=== PATIENT | female | born 1960 | race Caucasian/White ===

== ENCOUNTER → 2021-06-23 | Outpatient (CLI) | payer BC ==
[2021-06-23 18:30] LABS: Basophils # (A) 0.07 X 10*3/uL (0.00-0.10); Basophils % (A) 1.1 %; Eosinophils # (A) 0.15 X 10*3/uL (0.04-0.35); Eosinophils % (A) 2.4 %; HCT 45.7 % (37.2-46.3); HGB 14.2 g/dL (12.0-15.0); Immature Grans, Automated 0.3 %; Lymphocytes # (A) 1.41 X 10*3/uL (0.90-5.00); Lymphocytes % (A) 22.7 %; MCH 30.4 pg (27.0-32.0); MCHC 31.1 g/dL (32.0-37.0); MCV 97.9 fL (80.0-97.0); Mean Platelet Volume 10.6 fL (9.5-12.2); Monocytes # (A) 0.49 X 10*3/uL (0.20-1.00); Monocytes % (A) 7.9 %; NRBC Per 100 WBC 0 /100 WBCS (0.0-0.0); Neutrophils # (A) 4.07 X 10*3/uL (1.80-7.70); Neutrophils % (A) 65.6 %; Platelet Count 285 X 10*3/uL (140-440); RBC 4.67 X 10*6/uL (4.10-5.20); RDW 14.6 % (11.5-14.5); WBC 6.21 X 10*3/uL (4.50-10.00)
[2021-06-23 18:37] LABS: African American GFR (CKD) 101.7 (60.0-200.0); Anion Gap 9.2 mmol/L (10.00-18.00); BUN/Creat Ratio 22.64 Ratio (12.00-20.00); Blood Urea Nitrogen 16.8 mg/dL (9.0-27.0); Calcium 9.7 mg/dL (8.7-10.3); Non-African American GFR(CKD) 87.8 (60.0-200.0); Potassium 4.8 mmol/L (3.5-5.5)
[2021-06-23 19:13] LABS: INR 0.91 (0.90-1.11); Prothrombin Time 10.3 sec (9.9-11.9)
== END | disposition home or self-care (01) ==
LOC: LABPAT 11:01
PROVIDERS: ATTEND Orthopaedic Surgery
DX: Z01.812 Encounter for preprocedural laboratory examination (principal); M47.816 Spondylosis without myelopathy or radiculopathy, lumbar region; Z22.322 Carrier or suspected carrier of Methicillin resistant Staphylococcus aureus
CPT/HCPCS: 80048; 85025; 85610; 87070

== ENCOUNTER 2021-07-01 09:58 | Inpatient (IN) | payer BC ==
--- NOTE | 2021-06-23 14:03 | P.HPOR ---
History of Present Illness H&P Date: 06/23/21 Chief Complaint: Low back pain, LE radiculopathy/pain, LE weakness Date of :[birth year] Age: 60 year Height: 5'10" Weight: 220 lbs BMI: 31.57 kg/m2 Occupation: [employer] officer VAS: 2 CHIEF COMPLAINT: Lumbar pain HISTORY: Xrays No new xrays taken in office Trauma or injury No Work-Related No Pain description sharp. Location diffuse Activity Modification yes , unable to stand or ambulate for extended periods of time. Hand Dominance right DOI: Chronic, no injury or trauma. DOS:None. TREATMENTS COMPLETED: 6 weeks of PT completed? Yes, with no improvements. Physician directed home exercise completed? Yes, with no improvements, exacerbated her lumbar pain. Medications List: Advil, Aleve with no discernable changes to her symptomology. Gabapentin and Wyatt also without relief. Alternative interventions Chiropractic?: No Brace: No Injections Yes (Right L4-L5, L5-S1 ROOSEVELT) How many? 2 Did they help? yes , good relief for 4-5 days each that then waned. RFA: yes, relief of pain in back for short time. SUBJECTIVE: Today the patient presents to the office for a pre-op review of the planned L4- S1 decompression and fusion. Since the time of the last appointment the patient reports that her symptoms have continued to persist. She reports mild improvements to her pain with the RFA but still is having significant issues c ompleting daily tasks. Overall she feels that she has failed to improve with conservative modalities. Otherwise she expresses an understanding of the surgery and wishes to proceed with the planned operation. She continues to deny any bladder or bowel retention/incontinence, no perineal numbness/tingling, and ambulates independently. HPI: Ms. Corrales last presented to the office on 05/01/2021 for a recheck of her lumbar spine following her last appointment via televisit. Since the time of the last appointment the patient reports that her symptoms have not changed and co ntinued to give her significant issues. Overall she reports that she has failed to improve with all conservative treatments trialed and is ready to further discuss operative intervention. Patient reports significant disfunction and an inability to complete most of her daily activities. Otherwise she also denies having trialed any new treatment modalities since the time of the last appointment. Additionally she continues to deny any bladder or bowel issues, no perineal numbness/tingling, and is ambulating without the use of any aids. Ms. Corrales was last seen on 05/05/21 regarding her MRI that could not be read at the time of her office visit. Regarding her symptoms she denies any changes since the time of the last appointment. Patient continues to complain on inability to complete many of her daily functions due to her symptoms, and most acutely her bilateral lower extremity weakness and radiculopathy. Her primary concern is her lower extremity weakness which is causing her disability. Patient denies having improved with any treatment modalities trialed thus far, overall noting that she is unable to function with most of her daily activities at this time. She continues to deny any bladder or bowel issues, no perineal numbness/tingling, and ambulates without the use of any aides. Ms. Corrales was previously seen on 04/30/2021 regarding an evaluation of her lumbar spine. Patient notes that she has had lumbar pain for many years that have progressively worsened over time. Patient denies any injury or trauma to indicate an exact onset of her symptoms. She continues to have low back pain as well as b/l LE numbness/tingling. She states some weakness in her legs as well and "giving out feeling". She denies any bowel or bladder issues. No perineal numbness tingling at this time. She states she has not had any recent treatment for her spine but in the past has done PT as well as HEP and medications w/o help. The patients' past social, medical, family, surgical history, as well as review of systems, have been reviewed. Please refer to the Neurosurgery History and Physical form that has been scanned in to our electronic medical record system. 14 points review of systems completed and as stated in HPI, all other systems reviewed are negative. Review of Systems 14 points review of systems completed and as stated in HPI, all other systems reviewed are negative. Physical Examination Osteopathic Statement: *. No significant issues noted on an osteopathic structural exam other than those noted in the History and Physical/Consult. PHYSICAL EXAMINATION: General: Awake, alert, appropriate for age, in no acute distress. HEENT: No unusual neck masses around region of lateral neck triangle, thyroid, supraclavicular groove Heart: Regular rate and rhythm, normal S1, S2 and no murmur/gallop. Lungs: Clear to auscultation bilaterally with no use of accessory muscles. Extremities: Skin warm and dry without acute lesions, coloration, temperature, skin intact, no tenderness or erythema Integument: Hairy patches: Absent Dorsal skin dimples: Absent Cafe au lait spots: Absent Surgical incisions: No Palpation: Please see Pain drawing on Intake sheet for further detail. Midline spinal tenderness: Yes E6 Paralumbar tenderness: Yes E6 Parathoracic tenderness: No E6 Buttocks tenderness: No E6 Special findings: yes Palpable stepoff at L5-L4 Tenderness over the right SI joint POSTURAL and MUSCULO-SKELETAL EVALUATION: Coronal Balance: NEUTRAL Recumbent testing: Patient is able to lay flat on back Sagittal Balance: NEUTRAL Shoulder Profile: LEVEL Pelvic Girdle: LEVEL Neck ROM: UNRESTRICTED Lumbar ROM: RESTRICTED Shoulder ROM: Symmetrical Hip ROM: Symmetrical Knee ROM: Symmetrical Hands: Normal appearance, symmetrical Feet: Normal appearance, Symmetrical VASCULAR STATUS : LEFT RIGHT Wrist Pulses INTACT INTACT Pedal Pulses (Dors. pedis & post.tibialis) INTACT INTACT Color NORMAL NORMAL Edema Absent Absent NEUROLOGIC EXAMINATION: Mental Status:Awake and alert, fully oriented, with normal attention, concentration and memory, and fluent, appropriate speech. Cranial Nerves: I: Olfactory not tested. II: Visual acuity normal, no visual field deficit noted with confrontation. III,IV: Normal pupillary reflexes & intact extraocular movements without nystagmus. V,: Intact symmetrical facial sensation. VII: Intact symmetrical facial motor movement VIII: Hearing intact. IX,X: Intact gag, swallow, & normal voice. XI: Sternocleidomastoid, trapezius function intact. XII: Tongue midline with normal movements. L'hermitte's Sign: Negative / absent Spurling'Sign: Absent bilaterally. Cubital percussion test: Absent bilaterally. Johnson-Tinel sign - Carpal region: Absent bilaterally. Straight Leg Raising: Absent bilaterally. Crossed straight leg raise: negative O8 MOTOR EXAM (0-5/5, N/T) STRENGTH RIGHT LEFT Shoulder Abd (not part of the AMY score) 5 5 Elbow Flexors 5 5 Elbow Extensor 5 5 Wrist Dorsiflexors 5 5 Finger Abductor 5 5 Sports Bookmaker 5 5 Hip Flexor (Not part of AMY Motor score) 5 5 Knee Flexor 5 5 Knee Extensor 5 5 Ankle dorsiflexor 4- 4- Ankle plantarflexion 3 3 Extensor hallucis 5 5 REFLEXES(0-4/2, NT) RIGHT LEFT Upper Extremities 2 2 Lower Extremities 2 2 Pathological Reflexes RIGHT LEFT Johnson's Absent Absent Clonus Absent Absent Babinski Absent Absent # Indicates mechanical impairment Muscle appearance: Symmetrical, without signs of atrophy or dystrophy. Sensory system (0-4, N/T) Test type RU CARLEEN RL LL Joint-Position 2 2 2 2 Vibration 2 2 2 2 Pain & LT sense 2 2 2 2 Dermatomal Deficit: None None L5-S1 None Gait and Functional Evaluation: Ambulatory aids: Independent Romberg's test: Intact bilaterally Toe heel walk / heel-toe walk intact while maintaining satisfactory balance? No Squatting/straightening w/o assistance to a min of 60 degree knee flexion? No Single leg stance: Unstable on both sides, right worse than left Trendelenburg sign negative bilaterally Hand and finger dexterity intact bilaterally? yes Disdiadochokinesis examination negative bilaterally? yes Results RADIOGRAPHIC STUDIES: XRay taken on 04/30/21 oflumbar Spine and pelvis: L3-S1 spondylosis with L3-4 spondylolisthesis Grade I with minor translation on f/e films. There is disc dessication as well as facet arthropathy through this area. No fracture or lesions noted. Flattened LL noted with PI:LL mismatch. AP pelvis shows post surgical changes L CHUCKIE in place, no complicating processes, no new fractures. Olt GT fracture Lt. MRI from 11/18/2020 of the lumbar spine demonstrates: Spondylosis is noted from L3-S1 with transitional segment. There is L3-4 and L4-5 spondylolisthesis grade I noted and L3-5. There are no fractures or lesions noted. There is severe stenosis L4-5 with moderate central stenosis L3- 4 and severe L4-5. There is facet arthropathy with hypertrophy and overgrowth contributing to the stenosis, there is ligamental hypertrophy contributing as well. There are boggy facets noted as well. Assessment and Plan Assessment: It was my pleasure to have seen and examined Jamila. I reviewed the patient's clinical syndrome, physical findings, and imaging studies during the appointment today. It is my impression that the patient has a diagnosis of. 1. L3-S1 spondylosis 2.L3-S1 spondylolisthesis GI 3. LE weakness 4. b/l LE radiculopathy 5. 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 Neurogenic claudication I outlined the natural course history without intervention and various interventional options. Plan: 1.At this time we did discuss her imaging, physical examination, and continued failure to improve with all conservative treatments trialed. Based on this I discussed treatment options with the patient, including operative and non- operative options, and they have elected to proceed with the following surgical procedure: L4-S1 decompression and fusion The indications, risks, benefits, and alternatives to surgery were discussed with the patient and family at length. Specifically (but not limited to) the ri sks of infection, stiffness, recurrence of symptoms, need for revision surgery, local numbness, neurovascular injury, and blood clots were discussed. The patient's questions were answered. The decision to proceed was made. Consent will be obtained for the procedure. 2. Ordered a CT scan without contrast of the lumbar spine for pre-op planning. 3. Given a script for an LSO brace to aid with post-op recovery. Spine Surgery Risk Review Jamila Corrales is presenting for evaluation of lumbar pain. It was my pleasure to have seen and examined Jamila Corrales. In our visit today we have had a chance to go over subjective complaints, physical examination findings and treatments including the natural course history without intervention and various interventional options. The patients imaging demonstrates Xrays: L3-S1 spondylosis with L3-4 spondylolisthesis Grade I with minor translation on f/e films. There is disc dessication as well as facet arthropathy through this area. No fracture or lesions noted. Flattened LL noted with PI:LL mismatch.AP pelvis shows post surgical changes L CHUCKIE in place, no complicating processes, no new fractures. Olt GT fracture Lt.MRI: Spondylosis is noted from L3-S1 with transitional segment. There is L3-4 and L4-5 spondylolisthesis grade I noted and L3-5. There are no fractures or lesions noted. There is severe stenosis L4-5 with moderate central stenosis L3- 4 and severe L4-5. There is facet arthropathy with hypertrophy and overgrowth contributing to the stenosis, there is ligamental hypertrophy contributing as well. There are boggy facets noted as well.On physical exam, Jamila Corrales demonstrates severely restricted lumbar ROM with bilateral lower extremity radiculopathy and weakness. Specifically regarding plantarflexion she has severe weakness which is effecting gait. She does have a right lower extremity L5-S1 dermatomal deficit as well. I have explained to the patient that as their condition progresses it will cause further neurological deficits and eventual paralysis. Based on the patients imaging, physical exam, and the rapid progression and disabling nature of their symptoms, at this time I recommend surgery in the form or a: L4-S1 decompression and fusion. I discussed the risk and benefits of this procedure at length with Jamila Corrales. The patient agreed to considered pursuing the procedure abovementioned. Prior to surgery, she should follow up with her PCP (Cardio, ID, IM etc) for clearance. Questions were invited and answered, and the patient wishes to proceed as outlined below. Currently, I am recommendin.L4-S1 decompression and fusion 2.Follow up with PCP for surgical clearance 3.Review of surgical risks and benefits as well as an educational packet on the proposed surgical procedure. Risks: All surgical procedures come with inherent risks, including those related to positioning, anesthesia, intraoperative findings, and postoperative complications. It is important to understand that surgery does not come with any guarantee of a successful outcome as complications and adverse events are always possible. The patient was given a handout in office today discussing the surgical procedure and risks associated with the intervention, both of which were discussed with the patient. These risks include but are not limited to the following: * Experiencing same, different or even worse symptoms in back, neck, arms, or legs compared to before surgery. Requiring further surgery or other forms of treatment presently or at some time in the future at same or other levels of the intended spine surgery. On an extreme but fortunately relatively rare basis severe complication such as blindness, stroke, heart attack, temporary and/or permanent nerve injury, paralysis, coma, or may occur, sometimes without known explanation. Surgical complications may include but are not limited to risk of in fection, fluid accumulation in the surgical dissection site, including a seroma or hematoma, that requires additional surgery, wound drainage, bleeding, new numbness or weakness, vision changes/loss, spinal fluid leakage, non-healing and/or infected incision, headaches, difficulty or inability to swallow, hoarseness, hemopneumothorax, pneumothorax, impotence, retrograde ejaculation, vaginal dryness; injury to nerves, spinal cord, blood vessels, lymphatics or other vital organs (i.e., bowel injury, injury to the great vessels); heterotopic bone formation; complications related to the hardware such as screws, rods, cages including misplaced hardware, device failure, instrumentation at the wrong spine level, hardware fracture/breakage, or hardware loosening; vertebral failure of the spinal column above or below the newly placed hardware; retained surgical instrumentations or devices and the need for further surgery. * Medical risks of the planned spine surgery include but are not limited to generalized Infections to the whole body or local areas outside of the surgical site (sepsis), heart attack, bleeding, anaphylaxis, meningitis, seizure, epilepsy, hearing loss, burn juarez, laceration of the head or other areas of the body, bruising, hypersensitivity of the skin, bladder over distension; allergic reaction; shoulder injury related to positioning; fat, blood and air clots to other areas of the body like heart, lungs, brain; failure of internal organs such as lungs, kidneys, liver and excessive bleeding. If blood transfusions are necessary, note that transfusions may ca use intolerance reactions such as anaphylaxis or other complex reactions. Despite best efforts, the results of spine surgery might not heal in terms of bone, soft tissues such as skin, fascia, ligaments, and joints. Additionally, in order to achieve best possible results, spine surgery may be carried out beyond the initially planned levels and involve decompression, fusion including insertion of hardware at levels other than the original intended area of surgical interest change some portions of the procedure in order to ensure the best possible outcomes. With spine surgery and spinal fusion, there are different off label uses of instrumentation (devices, implants and hardware) as well as biological substances (bone morphogenic proteins, demineralized bone matrix) as well as using extra bone from allograft sources (i.e. cadaver bone) or autograft (iliac crest bone, ribs, or the spine itself). The patient has been given information about these practices and their inherent risks and benefits. [facility] is an educational center that serves as a training facility for neurosurgical and orthopedic spine residents and fellows. Residents are physicians who are completing their surgical intensive training following medical school. They assist in the operating room with direct supervision of the attending surgeons. Clyo are surgeons who have completed their training and eligible for board certification. They have opted for an elective year of more specialized training in their field. They assist in the operating room under the supervision of the attending surgeons. Physician assistants are medically trained surgical providers who function in the outpatient, inpatient, and operating room setting under the direct supervision of the attending surgeon. [facility] has multiple operating rooms with single and overlapping rooms running daily. They currently function under the required guidelines as produced by the [facility] Finance Committee with regards to the overlapping rooms and will continue to comply with changes to this policy as they occur. The requirements include and are complied with as follows: (1) the critical portions of the overlapping rooms will not occur at the same time, (2) the attending physician will be physically present during the critical portions of the procedure and immediately available during the entire case, and (3) a back-up attending is designated should the primary attending not be immediately available. The patient has had a chance to review all the listed information, has been given print outs detailing this information, and has had all his/her questions answered to their satisfaction. It was my pleasure to have seen and examined Jamila Corrales. In our visit today we have had a chance to go over my understanding of our patient's current condition, the natural course history without intervention and various interventional options. Questions were invited and answered, and the patient wishes to proceed as outlined above. I have seen and examined the patient for 25 minutes and we have spent more than 50% of the time in repeat and detailed counseling about the patient's condition, its natural course history with out and as much as can be predicted with surgery and re-review of various surgical treatment options. In conclusion, Jamila Corrales requested we proceed with the above suggested surgery and are willing to accept risks and limitations of the suggested surgery as nature of the disease process and our best attempts at treatment for the c ondition. Thank you again for allowing us to be part of your patient's care. Please don't hesitate to contact me if you have any further questions. Signed and authenticated by: Eder Funez DO [facility]im[facility] Sp[facility] Tiarra Aquino [address] [address]
[2021-06-26 13:08] VITALS: BMI 31.1
[~2021-07-01 09:58] MED LIST: ACETAMINOPHEN TAB 500 MG TAB PO PRN; DEXAMETHASONE SOD PHOSPHATE 4 MG/ML 1 ML VIAL IV ONE; GABAPENTIN 300 MG CAP PO PRN; ONDANSETRON 4 MG/2 ML VIAL IVP ONE; ONDANSETRON 4 MG/2 ML VIAL IVP PRN; TRANEXAMIC ACID IN NACL,ISO-OS 1,000 MG in SALINE 1 100ML.BAG IVPB PRN
[2021-07-01] MEDS: LACTATED RINGERS 1,000 ML IV SCH ×2 (10:50→20:30)
[2021-07-01] MEDS ORDERED: LIDOCAINE 1% (10MG/ML) FOR IV START INTRADERMA ONE ×2 (10:50)
[2021-07-01] MEDS ORDERED: MIDAZOLAM 2 MG/2 ML VIAL IVP ONE (11:25)
[2021-07-01] MEDS ORDERED: SODIUM CHLORIDE 0.9% 100 ML BAG ONE (13:09)
[2021-07-01] MEDS ORDERED: MIDAZOLAM 2 MG/2 ML VIAL ONE (13:09)
[2021-07-01] MEDS ORDERED: KETAMINE 10 MG/ML 20 ML VIAL ONE (13:09)
[2021-07-01] MEDS ORDERED: ROCURONIUM 10 MG/ML (5 ML VIAL) IV ONE (13:09)
[2021-07-01] MEDS ORDERED: GLYCOPYRROLATE 0.2 MG/ML 2 ML VIAL ONE (13:09)
[2021-07-01] MEDS ORDERED: PHENYLEPHRINE-0.9% NACL SYG 1,000 MCG/10 ML SYRINGE ONE (13:09)
[2021-07-01] MEDS ORDERED: LIDOCAINE 1% INJ 10MG/ML (20 ML MDV) ONE (13:09)
[2021-07-01] MEDS ORDERED: ceFAZolin 1,000 MG VIAL ONE (13:09)
[2021-07-01] MEDS ORDERED: HYDROmorphone (PF) 1 MG/ML ONE (13:09)
[2021-07-01] MEDS ORDERED: NEOSTIGMINE 1 MG/ML 10 ML VIAL ONE (13:09)
[2021-07-01] MEDS ORDERED: fentaNYL (PF) 50 MCG/ML 2 ML AMP ONE (13:09)
[2021-07-01] MEDS ORDERED: PROPOFOL 10 MG/ML 20 ML VIAL IV ONE (13:09)
[2021-07-01] MEDS ORDERED: TRANEXAMIC ACID IN NACL,ISO-OS 1,000 MG/100 ML BAG ONE (13:09)
--- NOTE | 2021-07-01 13:44 | P.PN ---
Progress Note - Text Progress Note Date: 07/01/21 History and Physical UPDATE I have seen and examined the patient and reviewed the history and physical. There appear to be no significant changes in the patient's current medical status as outlined in the current History and Physical.
[2021-07-01] MEDS ORDERED: VANCOMYCIN 1,000 MG VIAL MISCELLANE ONE (14:19)
[2021-07-01] MEDS ORDERED: BUPIVACAINE (PF) 0.25% 30 ML VIAL SQ ONE (14:19)
[2021-07-01] MEDS ORDERED: GELATIN SPONGE,ABSORB (LARGE) 1 EACH SPONGE TOPICAL ONE (14:19)
[2021-07-01] MEDS ORDERED: THROMBIN (RECOMBINANT) 5,000 UNIT VIAL TOPICAL ONE (14:20)
[2021-07-01] MEDS ORDERED: LACTATED RINGERS 1,000 ML IV ONE ×2 (15:49)
[2021-07-01] MEDS ORDERED: SENNOSIDES-DOCUSATE SODIUM 1 EACH TAB PO PRN (17:46)
[2021-07-01] MEDS ORDERED: traMADol 50 MG TAB PO PRN (17:46)
[2021-07-01] MEDS ORDERED: MAG HYDROX/AL HYDROX/SIMETH 30 ML CUP PO PRN (17:46)
[2021-07-01] MEDS ORDERED: MAGNESIUM HYDROXIDE 2,400 MG/10 ML CUP PO PRN (17:46)
[2021-07-01] MEDS ORDERED: bisacodyL 10 MG SUPP RECTAL PRN (17:46)
[2021-07-01] MEDS ORDERED: ONDANSETRON 4 MG/2 ML VIAL IVP PRN (17:46)
--- NOTE | 2021-07-01 18:28 | XR ---
EXAMINATION TYPE: XR lumbar spine 2 or 3V DATE OF EXAM: 07/01/2021 COMPARISON: NONE HISTORY: Surgery TECHNIQUE: 12 views FINDINGS: 4 minutes and 55 seconds of fluoroscopy time was recorded. There are series of multiple flu oroscopic images that show placement of rods and screws fusing posteriorly the lumbar spine apparentl y from L3 to L5. IMPRESSION: No complicating process seen.
[2021-07-01] MEDS: HYDROmorphone 0.5 MG/0.5 ML SYRINGE IVP PRN ×4 (18:58→23:13)
--- NOTE | 2021-07-01 19:00 | P.PN ---
Progress Note - Text Progress Note Date: 07/01/21 Postop: . Patient seen and examined they are doing well. Their pain is under control at this time. They are moving all 4 extremities without any issues. Vital signs are stable.. They are currently recovering and will be transferred to the floor once deemed stable by the PACU team and anesthesiologist. No Other issues at this time they deny fever chills shortness of breath or chest pain. Medical management pending Continue with intravenous fluids, pain medication, muscle relaxers, home medication Soft diet to start to advance as tolerated We will evaluate the patient in the morning. Brief Post Op: Surgeon: Armin Pre op dx; L4 S1 spondylosis with stenosis Post op dx: Same Procedure: L4 to S1 transforaminal lumbar interbody fusion Anesthesia: GETA EBL: 150 Fluids: 2200 UO: 500 Dispo: Stable to PACU Post op Plan: Post operative noncontrasted CT scan Encourage ambulation IS 10x/hr Teds/SCDs Pain control No brace needed for ambulation
--- NOTE | 2021-07-01 19:08 | FL ---
EXAMINATION TYPE: FL guidance operating room DATE OF EXAM: 07/01/2021 FLUOROSCOPY Fluoroscopy time of 4 minutes 55 seconds was used during lumbar spondylosis pain management procedure . 11 image/s document/s the procedure.
[2021-07-01] MEDS: HYDROcodone/APAP 10-325MG 1 EACH TAB PO PRN (21:34)
[2021-07-01] MEDS: ACETAMINOPHEN TAB 325 MG TAB PO SCH ×2 (21:34→22:32)
[2021-07-01] MEDS: GABAPENTIN 300 MG CAP PO SCH (21:36)
--- NOTE | 2021-07-02 02:44 | CT ---
EXAMINATION TYPE: CT lumbar spine wo con DATE OF EXAM: 07/01/2021 COMPARISON: MR scan 8-21 HISTORY: s/p lumbar fusion CT DLP: 1360.3 mGycm Automated exposure control for dose reduction was used. Images obtained from the level of T11-S3 vertebra without contrast. The vertebra have normal alignment. There is posterior fusion surgery from L4 to S1. There is redunda nt mesentery disc at S1-S2. Normal alignment. There is no compression fracture. There is disc prosthesis at L4-5 and L5-S1. Exam limited by metal artifact. There is no paraspinal mass. No discrete fluid collection. Sacroiliac join ts are intact. There is left side laminectomy defect. IMPRESSION: Posterior fusion surgery. No fracture. No complicating process seen. No adverse change compared to pr eoperative exam of November 18, 2020
[2021-07-02] MEDS: HYDROcodone/APAP 10-325MG 1 EACH TAB PO PRN ×3 (04:05→17:27)
[2021-07-02] MEDS: ACETAMINOPHEN TAB 325 MG TAB PO SCH ×3 (04:05→17:18)
[2021-07-02] MEDS: GABAPENTIN 300 MG CAP PO SCH ×3 (07:54→21:11)
[2021-07-02] MEDS: HYDROmorphone 0.5 MG/0.5 ML SYRINGE IVP PRN (07:57)
[2021-07-02] MEDS: CYCLOBENZAPRINE 5 MG TAB PO PRN ×3 (08:01→21:11)
--- NOTE | 2021-07-02 09:12 | P.PN ---
Subjective Progress Note Date: 07/02/21 Principal diagnosis: s/p minimally invasive L4 to S1 transforaminal lumbar interbody fusion. Patient was seen and examined today and states she is doing well. Patient is resting in bed and tolerating diet. She seems very positive and motivated requesting to get up and sit in chair. She states pain is managed under current regimen. Patient states that it seems to her that her previous symptoms have improved since surgery. Dressings to lower back are clean dry and intact. Patient denies any fever or chills, bowel/bladder incontinence or retention, and denies chest pain. Objective - Vital Signs Vital signs: Vital Signs Temp 98.0 F 07/02/21 05:15 Pulse 90 07/02/21 08:02 Resp 18 07/02/21 05:15 BP 141/78 07/02/21 08:02 Pulse Ox 96 07/02/21 05:15 Intake & Output 07/01/21 07/02/21 07/02/21 18:59 06:59 18:59 Intake Total 2000 100 Output Total 460 600 Balance 1540 -500 Weight 100 kg Intake: IV 2000 100 Output: Urine 310 600 Estimated Blood Loss 150 - Exam Physical Examination General: The patient is awake and alert, in no acute distress Skin: Skin is warm and dry with no obvious rashes or lesions. Hairy patches absent, no dorsal skin dimples, and no cafe au lait spots. There are two incisions to the paralumbar region. Eye: Pupils are equal, round and reactive to light, extra-ocular movements are intact; there is normal conjunctiva bilaterally. Neck: The neck is supple, there is no tenderness and ROM intact. Cardiovascular: There is a regular rate and rhythm. No murmur, rub or gallop is appreciated. Respiratory: Lungs are clear to auscultation, respirations are non-labored, breath sounds are equal. Gastrointestinal: Soft, non-distended, non-tender abdomen. Back: There is mild tenderness to palpation in the midline, paralumbar region. There is no obvious deformity. Musculoskeletal: ROM limited secondary to pain and stiffness from surgical procedure. Shoulder abduction 5/5, elbow flexors 5/5, wrist dorsiflexors 5/5. finger abductor 5/5, principal systems architect 5/5, hip flexor 4/5, knee flexor 4/5, ankle dorsiflexor 4/5, ankle plantarflexion 4/5 and extensor hallucis 4/5. Neurological: CN 2-12 intact. There are no obvious motor or sensory deficits. Movement and coordination equal and intact. Sensory exam to light touch intact C5-T1 and intact from L2-S1. Reflexes 2/4 in bilateral upper and lower extremities. Negative Hoffmans, babinski, and clonus signs. Psychiatric: Cooperative, appropriate mood & affect, normal judgment. Assessment and Plan Assessment: S/P minimally invasive L4 to S1 transforaminal lumbar interbody fusion. Plan: I reviewed and discussed the case with my attending Dr. Funez, he has had a chance to review the chart and films and we have decided to proceed as outlined below. Plan: -Appreciate consultants and team management. -Activity: Ambulate QID, OOB all meals, up and about, limit lifting bending twisting to less than 5 lbs. Use walker or cane if needed for stability. -Daily PT/OT, increase ambulation strength and balance. -Pain control: Dilaudid, [place], Tramadol -Meds: reviewed -GI ppx: senna, dulcolax, MOM -DC jackson when up and about, bedside commode if needed -Hygiene: Shower today. Maintain dressing clean and dry. Meticulous cleaning after BMs away from incision site -Encourage IS 10x/hr -Dispo: Anticipate discharge home today 07/02/21 or tomorrow 07/03/21. I have personally seen and examined the patient, performed the documentation and the assessment and plan as written. Number of minutes spent on the visit: [20 ]. Time with Patient: Less than 30
[2021-07-02 09:31] LABS: Basophils # (A) 0.03 X 10*3/uL (0.00-0.10); Basophils % (A) 0.4 %; Eosinophils # (A) 0.04 X 10*3/uL (0.04-0.35); Eosinophils % (A) 0.5 %; HCT 35.9 % (37.2-46.3); HGB 11.4 g/dL (12.0-15.0); Immature Grans, Automated 0.9 %; Lymphocytes # (A) 1.33 X 10*3/uL (0.90-5.00); Lymphocytes % (A) 17.2 %; MCH 30.7 pg (27.0-32.0); MCHC 31.8 g/dL (32.0-37.0); MCV 96.8 fL (80.0-97.0); Mean Platelet Volume 10.8 fL (9.5-12.2); Monocytes # (A) 0.54 X 10*3/uL (0.20-1.00); NRBC Per 100 WBC 0 /100 WBCS (0.0-0.0); Neutrophils # (A) 5.71 X 10*3/uL (1.80-7.70); Platelet Count 217 X 10*3/uL (140-440); RBC 3.71 X 10*6/uL (4.10-5.20); RDW 14.1 % (11.5-14.5); WBC 7.72 X 10*3/uL (4.50-10.00)
[2021-07-02 09:59] LABS: African American GFR (CKD) 109.1 (60.0-200.0); Anion Gap 10.3 mmol/L (10.00-18.00); BUN/Creat Ratio 17.14 Ratio (12.00-20.00); Calcium 8.1 mg/dL (8.7-10.3); Carbon Dioxide 21.7 mmol/L (20.0-27.5); Non-African American GFR(CKD) 94.2 (60.0-200.0); Potassium 3.8 mmol/L (3.5-5.5)
[2021-07-02] MEDS: LEVOTHYROXINE 75 MCG TAB PO SCH (10:40)
[2021-07-02] MEDS: DILTIAZEM ORAL 60 MG TAB PO SCH (10:40)
[2021-07-02] MEDS: buPROPion SR 100 MG TABLET.ER PO SCH (10:40)
--- NOTE | 2021-07-02 15:10 | P.CONS ---
History of Present Illness - Reason for Consult Consult date: 07/02/21 Medical management - Chief Complaint s/p minimally invasive L4 to S1 transforaminal lumbar interbody fusion. - History of Present Illness Patient is a 60-year-old female with a known history of hypertension, hypothyroidism, osteoarthritis and degenerative disc disease with history of chronic low back pain which got worsened recently was admitted to the hospital for elective L4 S1 lumbar spinal fusion surgery. Patient has been having shooting down pain below the legs for the past few months. Patient states that she feels better after surgery and denied any neuropathic pain currently. Able to sit in the recliner sometime today. No complaints of numbness or paresthesias. No complaints of chest pain or shortness of breath. No fever no chills. No cough or sputum production. Patient is participating incentive spirometry. Laboratory showed WBC 7.72 hemoglobin 11.4 and platelets 217 sodium 136 potassium 3.8 chloride 104 BUN 12 and creatinine 0.7 blood sugar is 199 calcium 8.1 Review of Systems Constitutional: Patient denies any fever or chills . No generalized weakness or weight loss. Abdomen: Patient denied nausea vomiting and diarrhea and abdominal pain. Cardiovascular: Patient denies any chest pain or short of breath no palpi tations. Respiratory: patient denied any cough is from production. No shortness of breath Neurologic: Patient denied any numbness or tingling headache. Musculoskeletal: Patient denies any complaints of joint swelling or deformity. Skin: Negative Psychiatric: Negative Endocrine: No heat or cold intolerance. No recent weight gain. Genitourinary: No dysuria or hematuria. All other 14 point ROS negative except the above Past Medical History Past Medical History: Hypertension, Osteoarthritis (OA), Thyroid Disorder History of Any Multi-Drug Resistant Organisms: None Reported Past Surgical History: Bariatric Surgery, Section, Cholecystectomy, Hernia Repair, Hysterectomy, Joint Replacement Additional Past Surgical History / Comment(s): RIGHT WRIST , GASTRIC BYPASS, ABDOMINAL HERNIA, NECK SURGERY- DISC SURGERY , SURGERY FOR A ULCER, TOTAL LEFT HIP SURGERY Past Anesthesia/Blood Transfusion Reactions: No Reported Reaction Smoking Status: Former smoker - Past Family History Sister(s) Family Medical History: Cancer Additional Family Medical History / Comment(s): BREAST CANCER Medications and Allergies Home Medications Medication Instructions Recorded Confirmed Type Diltiazem HCl 120 mg PO DAILY 06/26/21 06/26/21 History Doxepin HCl 20 mg PO HS 06/26/21 06/26/21 History Famotidine [Pepcid] 20 mg PO HS 06/26/21 06/26/21 History Gabapentin [Neurontin] 300 mg PO TID 06/26/21 06/26/21 History Levothyroxine Sodium [Synthroid] 150 mcg PO DAILY 06/26/21 06/26/21 History buPROPion HCL [Wellbutrin SR] 100 mg PO DAILY 06/26/21 06/26/21 History Allergies Allergy/AdvReac Type Severity Reaction Status Date / Time No Known Allergies Allergy Verified 06/26/21 11:45 Physical Exam Vitals: Vital Signs Temp Pulse Pulse Resp BP BP Pulse Ox 07/02/21 08:02 90 141/78 07/02/21 05:15 98.0 F 111 H 18 136/74 96 07/02/21 00:36 98 121/74 07/01/21 23:00 99 129/72 07/01/21 22:00 98 124/78 07/01/21 21:30 94 138/70 100 07/01/21 21:00 93 117/73 07/01/21 20:45 94 126/77 93 L 07/01/21 20:30 85 111/69 100 07/01/21 20:15 83 16 98/71 100 07/01/21 19:44 89 16 112/57 97 07/01/21 19:29 86 16 112/60 94 L 07/01/21 19:09 89 16 112/57 100 07/01/21 18:55 69 16 113/59 100 07/01/21 18:40 97 F L 79 16 129/67 99 07/01/21 10:50 98.6 F 78 16 140/66 99 Intake and Output 07/01/21 07/02/21 07/02/21 22:59 06:59 14:59 Intake Total 500 Output Total 560 500 500 Balance -60 -500 -500 Intake: IV 500 Output: Urine 410 500 500 Estimated Blood Loss 150 PHYSICAL EXAMINATION: Patient is lying in the bed comfortably, no acute distress, awake alert and oriented.. HEENT: Normocephalic. Neck is supple. Pupils reactive. Nostrils clear. Oral cavity is moist. Neck reveals no JVD, carotid bruits, or thyromegaly. CHEST EXAMINATION: Trachea is central. Symmetrical expansion. Lung mullins clear to auscultation and percussion. CARDIAC: Normal S1, S2 with no gallops. No murmurs ABDOMEN: Soft. Bowel sounds normal. No organomegaly. No abdominal bruits. Extremities: reveal no edema. No clubbing or cyanosis Neurologically awake, alert, oriented x3 with well-coordinated movements. No focal deficits noted Skin: No rash or skin lesions. Psychiatric: Coperative. Nonsuicidal Musculoskeletal: No joint swelling or deformity. Normal range of motion. Results CBC & Chem 7: 07/02/21 05:35 07/02/21 05:35 Labs: Abnormal Lab Results - Last 24 Hours (Table) 07/02/21 Range/Units 05:35 RBC 3.71 L (4.10-5.20) X 10*6/uL Hgb 11.4 L (12.0-15.0) g/dL Hct 35.9 L (37.2-46.3) % MCHC 31.8 L (32.0-37.0) g/dL Immature Gran # 0.07 H (0.00-0.04) X 10*3/uL Assessment and Plan Assessment: s/p minimally invasive L4 to S1 transforaminal lumbar interbody fusion postoperative day 1 Degenerative disc disease Hypertension Hypothyroidism Anxiety/depression DVT prophylaxis with SCDs Plan: Patient will be continued on pain management, bowel regimen and incentive spirometry. Continue with Cardizem 120 mg p.o. daily. Blood pressure is controlled. Continue with levothyroxine other home medications. DVT prophylaxis with SCDs. We will continue to follow and further recommendations based on the clinical course. Thank you for consulting internal medicine service.
[2021-07-02] MEDS: HYDROmorphone 1 MG/ML 1 ML SYRINGE IVP PRN ×2 (15:54→22:33)
[2021-07-02] MEDS: DOXEPIN 10 MG CAP PO SCH (21:10)
[2021-07-03] MEDS: ACETAMINOPHEN TAB 325 MG TAB PO SCH ×4 (02:24→17:53)
[2021-07-03] MEDS: HYDROcodone/APAP 7.5-325MG 1 EACH TAB PO PRN ×3 (02:28→17:53)
[2021-07-03] MEDS: LEVOTHYROXINE 75 MCG TAB PO SCH (04:49)
[2021-07-03] MEDS: HYDROmorphone 1 MG/ML 1 ML SYRINGE IVP PRN (04:50)
[2021-07-03] MEDS: buPROPion SR 100 MG TABLET.ER PO SCH (08:03)
[2021-07-03] MEDS: DILTIAZEM ORAL 60 MG TAB PO SCH (08:03)
[2021-07-03] MEDS: GABAPENTIN 300 MG CAP PO SCH ×3 (08:03→20:44)
[2021-07-03] MEDS: CYCLOBENZAPRINE 5 MG TAB PO PRN (08:18)
[2021-07-03] MEDS: HYDROmorphone 0.5 MG/0.5 ML SYRINGE IVP PRN ×2 (13:33→22:28)
--- NOTE | 2021-07-03 15:46 | P.PN ---
Subjective Progress Note Date: 07/03/21 Principal diagnosis: s/p minimally invasive L4 to S1 transforaminal lumbar interbody fusion. Patient was seen and examined today. She states she is doing well. Patient has reported she has ambulated in the hallway with a walker, but does not feel comfortable at this time going home due to not feeling safe and steady on her own. Encouragement provided to keep working with PT and to get out of bed with every meal. She states pain is managed under current regimen. Surgical Incision assessed and dressing changed at this time. Patient denies any fever or chills, bowel/bladder incontinence or retention, and denies chest pain. Objective - Vital Signs Vital signs: Vital Signs Temp 99.5 F 07/03/21 05:00 Pulse 106 H 07/03/21 07:51 Resp 18 07/03/21 05:00 BP 144/78 07/03/21 07:51 Pulse Ox 96 07/03/21 07:51 Intake & Output 07/02/21 07/03/21 07/03/21 18:59 06:59 18:59 Intake Total 360 Output Total 2100 Balance -1740 Intake: Oral 360 Output: Urine 2100 Other: Voiding Method Toilet # Voids 2 - Exam Physical Examination General: The patient is awake and alert, in no acute distress Skin: Skin is warm and dry with no obvious rashes or lesions. Hairy patches absent, no dorsal skin dimples, and no cafe au lait spots. There are two incisions to the paralumbar region. Eye: Pupils are equal, round and reactive to light, extra-ocular movements are intact; there is normal conjunctiva bilaterally. Neck: The neck is supple, there is no tenderness and ROM intact. Cardiovascular: There is a regular rate and rhythm. No murmur, rub or gallop is appreciated. Respiratory: Lungs are clear to auscultation, respirations are non-labored, breath sounds are equal. Gastrointestinal: Soft, non-distended, non-tender abdomen. Back: There is mild tenderness to palpation in the midline, paralumbar region. There is no obvious deformity. Musculoskeletal: ROM limited secondary to pain and stiffness from surgical procedure. Shoulder abduction 5/5, elbow flexors 5/5, wrist dorsiflexors 5/5. finger abductor 5/5, staff command and control officer 5/5, hip flexor 4/5, knee flexor 4/5, ankle dorsiflexor 4/5, ankle plantarflexion 4/5 and extensor hallucis 4/5. Neurological: CN 2-12 intact. There are no obvious motor or sensory deficits. Movement and coordination equal and intact. Sensory exam to light touch intact C5-T1 and intact from L2-S1. Reflexes 2/4 in bilateral upper and lower extremities. Negative Hoffmans, babinski, and clonus signs. Psychiatric: Cooperative, appropriate mood & affect, normal judgment. - Labs CBC & Chem 7: 07/02/21 05:35 07/02/21 05:35 Labs: Abnormal Lab Results - Last 24 Hours (Table) 07/02/21 07/02/21 Range/Units 05:35 05:35 RBC 3.71 L (4.10-5.20) X 10*6/uL Hgb 11.4 L (12.0-15.0) g/dL Hct 35.9 L (37.2-46.3) % MCHC 31.8 L (32.0-37.0) g/dL Immature Gran # 0.07 H (0.00-0.04) X 10*3/uL Glucose 199 H (70-110) mg/dL Calcium 8.1 L (8.7-10.3) mg/dL Assessment and Plan Assessment: S/P minimally invasive L4 to S1 transforaminal lumbar interbody fusion. Plan: I reviewed and discussed the case with my attending Dr. Funez, he has had a chance to review the chart and films and we have decided to proceed as outlined below. Plan: -Appreciate consultants and team management. -Activity: Ambulate QID, OOB all meals, up and about, limit lifting bending twisting to less than 5 lbs. Use walker or cane if needed for stability. -Daily PT/OT, increase ambulation strength and balance. -Pain control: Dilaudid, [place], Tramadol -Meds: reviewed -GI ppx: senna, dulcolax, MOM -Hygiene: Shower today. Maintain dressing clean and dry. Meticulous cleaning after BMs away from incision site -Encourage IS 10x/hr -Dispo: Anticipate discharge home with homecare tomorrow 07/04/21 I have personally seen and examined the patient, performed the documentation and the assessment and plan as written. Number of minutes spent on the visit: [20 ].
[2021-07-03] MEDS: DOXEPIN 10 MG CAP PO SCH (20:44)
--- NOTE | 2021-07-03 23:23 | P.PN ---
Subjective Progress Note Date: 07/03/21 Patient is a 60-year-old female with a known history of hypertension, hypothyroidism, osteoarthritis and degenerative disc disease with history of chronic low back pain which got worsened recently was admitted to the hospital for elective L4 S1 lumbar spinal fusion surgery. Patient has been having shooti ng down pain below the legs for the past few months. Patient states that she feels better after surgery and denied any neuropathic pain currently. Able to sit in the recliner sometime today. No complaints of numbness or paresthesias. No complaints of chest pain or shortness of breath. No fever no chills. No cough or sputum production. Patient is participating incentive spirometry. Laboratory showed WBC 7.72 hemoglobin 11.4 and platelets 217 sodium 136 potassium 3.8 chloride 104 BUN 12 and creatinine 0.7 blood sugar is 199 calcium 8.1 07/03/2021 Patient is postoperative day 2 Status post L4 S1 transforaminal lumbar interbody fusion. Patient is currently lying in the bed. Awake alert and oriented x3. Was able to get up and walk with physical therapy. Complains of soreness in the lower back. No fever no chills. Denies any cough or sputum production. No headache or dizziness or lightheadedness. Laboratory data showed hemoglobin 11.4 and platelets 217 calcium 8.1. No chest pain or shortness of breath. Current medications reviewed. Objective - Vital Signs Vital signs: Vital Signs Temp 99.5 F 07/03/21 05:00 Pulse 106 H 07/03/21 07:51 Resp 18 07/03/21 05:00 BP 144/78 07/03/21 07:51 Pulse Ox 96 07/03/21 07:51 Intake & Output 07/02/21 07/03/21 07/03/21 18:59 06:59 18:59 Intake Total 360 Output Total 2100 Balance -1740 Intake: Oral 360 Output: Urine 2100 Other: Voiding Method Toilet Toilet # Voids 2 - Exam PHYSICAL EXAMINATION: Patient is lying in the bed comfortably, no acute distress, awake alert and oriented.. HEENT: Normocephalic. Neck is supple. Pupils reactive. Nostrils clear. Oral cavity is moist. Neck reveals no JVD, carotid bruits, or thyromegaly. CHEST EXAMINATION: Trachea is central. Symmetrical expansion. Lung mullins clear to auscultation and percussion. CARDIAC: Normal S1, S2 with no gallops. No murmurs ABDOMEN: Soft. Bowel sounds normal. No organomegaly. No abdominal bruits. Extremities: reveal no edema. No clubbing or cyanosis Neurologically awake, alert, oriented x3 with well-coordinated movements. No focal deficits noted Skin: No rash or skin lesions. Psychiatric: Coperative. Nonsuicidal Musculoskeletal: No joint swelling or deformity. Normal range of motion. - Labs CBC & Chem 7: 07/02/21 05:35 07/02/21 05:35 Assessment and Plan Assessment: s/p minimally invasive L4 to S1 transforaminal lumbar interbody fusion postoperative day 2 Degenerative disc disease Hypertension Hypothyroidism Anxiety/depression DVT prophylaxis with SCDs Plan: Patient will be continued on pain management, bowel regimen and incentive spirometry. Continue with Cardizem 120 mg p.o. daily. Blood pressure is controlled. Continue with levothyroxine other home medications. DVT prophylaxis with SCDs. We will continue to follow and further recommendations based on the clinical course.
[2021-07-04] MEDS: HYDROcodone/APAP 10-325MG 1 EACH TAB PO PRN ×3 (00:26→10:44)
[2021-07-04] MEDS: ACETAMINOPHEN TAB 325 MG TAB PO SCH ×3 (05:44→12:06)
[2021-07-04] MEDS: LACTATED RINGERS 1,000 ML IV SCH (05:44)
[2021-07-04] MEDS: LEVOTHYROXINE 75 MCG TAB PO SCH (05:46)
[2021-07-04] MEDS: DILTIAZEM ORAL 60 MG TAB PO SCH (08:48)
[2021-07-04] MEDS: buPROPion SR 100 MG TABLET.ER PO SCH (08:49)
[2021-07-04] MEDS: GABAPENTIN 300 MG CAP PO SCH (08:49)
[2021-07-04] MEDS: CYCLOBENZAPRINE 5 MG TAB PO PRN (09:00)
--- NOTE | 2021-07-04 09:08 | P.PN ---
Subjective Progress Note Date: 07/04/21 Principal diagnosis: s/p minimally invasive L4 to S1 transforaminal lumbar interbody fusion. Patient was seen and examined today. Patient resting in bed and states she is feeling well. Patient has complaint of lower back pain and feeling stiff. Encouragement provided for patient to move and to be out of bed with meals. Dressing to lumbar region is clean dry and intact, this will be changed prior to discharge. Patient will be discharged home today. She denies any lower e xtremity weakness, numbness, or tingling. Patient denies any fever or chills, nausea or vomiting, or chest pain. Objective - Vital Signs Vital signs: Vital Signs Temp 98.7 F 07/04/21 04:35 Pulse 89 07/04/21 04:35 Resp 20 07/04/21 04:35 BP 132/72 07/04/21 04:35 Pulse Ox 97 07/04/21 04:35 Intake & Output 07/03/21 07/04/21 07/04/21 18:59 06:59 18:59 Intake Total 750 880 Balance 750 880 Intake: Intake, IV Titration 50 340 Amount Lactated Ringers 1,000 ml 240 @ 20 mls/hr IV .Q24H JACQUES Rx#:[id number] ceFAZolin 2 gm In Sodium 50 100 Chloride 0.9% 50 ml @ 100 mls/hr IVPB Q8H JACQUES Rx#: [id number] Oral 700 540 Other: Voiding Method Toilet Toilet # Voids 2 3 - Exam Physical Examination General: The patient is awake and alert, in no acute distress Skin: Skin is warm and dry with no obvious rashes or lesions. Hairy patches absent, no dorsal skin dimples, and no cafe au lait spots. There are two incisions to the paralumbar region. Eye: Pupils are equal, round and reactive to light, extra-ocular movements are intact; there is normal conjunctiva bilaterally. Neck: The neck is supple, there is no tenderness and ROM intact. Cardiovascular: There is a regular rate and rhythm. No murmur, rub or gallop is appreciated. Respiratory: Lungs are clear to auscultation, respirations are non-labored, breath sounds are equal. Gastrointestinal: Soft, non-distended, non-tender abdomen. Back: There is mild tenderness to palpation in the midline, paralumbar region. There is no obvious deformity. Musculoskeletal: ROM limited secondary to pain and stiffness from surgical procedure. Shoulder abduction 5/5, elbow flexors 5/5, wrist dorsiflexors 5/5. finger abductor 5/5, reinforcing steel worker 5/5, hip flexor 4/5, knee flexor 4/5, ankle dorsiflexor 4/5, ankle plantarflexion 4/5 and extensor hallucis 4/5. Neurological: CN 2-12 intact. There are no obvious motor or sensory deficits. Movement and coordination equal and intact. Sensory exam to light touch intact C5-T1 and intact from L2-S1. Reflexes 2/4 in bilateral upper and lower extremities. Negative Hoffmans, babinski, and clonus signs. Psychiatric: Cooperative, appropriate mood & affect, normal judgment. - Labs CBC & Chem 7: 07/02/21 05:35 07/02/21 05:35 Assessment and Plan Assessment: Postop day 3: S/P minimally invasive L4 to S1 transforaminal lumbar interbody fusion. Plan: I reviewed and discussed the case with my attending Dr. Funez, he has had a chance to review the chart and films and we have decided to proceed as outlined below. Plan: -Appreciate consultants and team management. -Activity: Ambulate QID, OOB all meals, up and about, limit lifting bending twisting to less than 5 lbs. Use walker or cane if needed for stability. -Daily PT/OT, increase ambulation strength and balance. -Pain control: Dilaudid, [place], Tramadol -Meds: reviewed -GI ppx: senna, dulcolax, MOM -Hygiene: Shower today. Maintain dressing clean and dry. Meticulous cleaning after BMs away from incision site -Encourage IS 10x/hr -Dispo: Discharge home today 07/04/21 I have personally seen and examined the patient, performed the documentation and the assessment and plan as written. Number of minutes spent on the visit: [20 ]. Time with Patient: Less than 30
--- NOTE | 2021-07-04 10:05 | P.DS ---
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 They underwent appropriate preoperative care and were willing to undergo the intended procedure. They underwent a successful L4 to S1 decompression and fusion, were recovered appropriately and sent to the floor. While on the floor they worked with physical therapy, occupational therapy and nursing to enhance their recovery experience. Their pain was well controlled through their stay and they were started on appropriate medications, DVT ppx modalities, activity and dietary needs. Daily labs were monitored closely, and transfusions were only u sed when necessary. Medicine as well as other consulting services have made their input and have helped with our team approach and multidisciplinary care. PT milestones have been met and passed and they have made the recommendation of home for this patient and treating providers agree with this care path. The patient will be discharged home with appropriate medications, instructions and follow-up information and in stable condition. Patient Condition at Discharge: Good Plan - Discharge Summary Discharge Rx Participant: Yes New Discharge Prescriptions: New HYDROcodone/APAP 7.5-325MG [[place] 7.5] 1 - 2 each PO Q6HR PRN #56 tab PRN Reason: Pain Sennosides/Docusate Sodium [Senna Plus 8.6-50 mg Softgel] 1 each PO DAILY PRN #20 capsule PRN Reason: Constipation cefaDROXiL [Duricef] 500 mg PO Q12HR 5 Days #10 cap Cyclobenzaprine [Flexeril] 5 mg PO TID #90 tablet No Action Gabapentin [Neurontin] 300 mg PO TID Famotidine [Pepcid] 20 mg PO HS Diltiazem HCl 120 mg PO DAILY Levothyroxine Sodium [Synthroid] 150 mcg PO DAILY Doxepin HCl 20 mg PO HS buPROPion HCL [Wellbutrin SR] 100 mg PO DAILY Discharge Medication List Diltiazem HCl 120 mg PO DAILY 06/26/21 [History] Doxepin HCl 20 mg PO HS 06/26/21 [History] Famotidine [Pepcid] 20 mg PO HS 06/26/21 [History] Gabapentin [Neurontin] 300 mg PO TID 06/26/21 [History] Levothyroxine Sodium [Synthroid] 150 mcg PO DAILY 06/26/21 [History] buPROPion HCL [Wellbutrin SR] 100 mg PO DAILY 06/26/21 [History] Cyclobenzaprine [Flexeril] 5 mg PO TID #90 tablet 07/04/21 [Rx] HYDROcodone/APAP 7.5-325MG [[place] 7.5] 1 - 2 each PO Q6HR PRN #56 tab 07/04/21 [Rx] Sennosides/Docusate Sodium [Senna Plus 8.6-50 mg Softgel] 1 each PO DAILY PRN #20 capsule 07/04/21 [Rx] cefaDROXiL [Duricef] 500 mg PO Q12HR 5 Days #10 cap 07/04/21 [Rx] Follow up Appointment(s)/Referral(s): Baltazar Moran DO [Primary Care Provider] - 1 Week (patient will have to schedule own appt.) Eder Funez DO [Doctor of Osteopathic Medicine] - 07/21/21 10:40 am Activity/Diet/Wound Care/Special Instructions: Medications: See medication list All medication refills should be obtained through your primary care doctor or your clinic spine surgeon. Please discuss prescription refills at your follow up appointment. Do not call the hospital for medication refills. Dressing: Leave your dressing in place for a total of 5 days post operatively. Then you may remove your dressing and leave open to air. Keep the area clean and if not able to keep area clean, then cover with sterile gauze and tape. Showering: You may shower 3 days after your procedure allowing soap and water to run over incision. Do not scrub. Do not soak. Blot dry. Follow up: Please confirm a follow up appointment with your surgeon 3 weeks post operatively. Please make an appointment to follow up with your PCP in 1-2 weeks after surgery for evaluation 3 phase, 3-week plan POST OP WEEKS 1-3 1. Lifting/carrying/pushing/pulling limited to less than 5 pounds. 2. Do not sit for longer than 15 minutes at one time. Get up and walk around. Prolonged sitting is NOT advised. If you lay down, see if you can tolerate laying down on you front (belly side) 3. Walk for periods of 15 minutes = 1 mile but no longer; do it multiple times times each day. 4. Ice your low back after activity. POST OP WEEKS 3-6 1. Lifting limited to less than 20 pounds. 2. Do not sit for longer than 30 minutes at a time. Frequently change positions. Use a sit-to stand workstation or take frequent breaks from sitting if you have returned to work. 3. Walk for 30 minutes each day. If possible, do these three or more times a day POST OP WEEKS 6+ At your 6-week appointment we will give you a physical therapy referral to focus on a core stabilization and strengthening program. You should also work on leg & buttock strengthening, hamstring & quadriceps stretching, and continue a low impact aerobic activity program such as swimming, walking, or riding a stationary bicycle. During the initial 6 weeks after your surgery, you are at the highest risk of re-injuring your spine. You should generally avoid BLTs (bending, lifting and twisting combination motions) and follow the above guidelines to reduce the chance of reinjury. You can anticipate post op appointments in our office at approximately 3 weeks and 6 weeks after your surgery. INCISION CARE: If your incision is not draining you do NOT need to cover it with a dressing. Keep your incision clean, dry and intact. In most cases, we apply skin glue, malissa or sutures to the incision at the time of surgery. This will be like a crust or have the appearance of a scab and will fall off in time on its own. The stitches or malissa need to be removed at 3 weeks post op appointment. You may begin to shower 3 days after surgery (this allows the glue to kaur well). However, please avoid scrubbing the incision site or peeling off any of the skin glue. This will ensure optimal healing of your incision. Also, during this time avoid soaking the incision area in water - this includes swimming pools, hot tubs or baths. No ointments, lotions or oils on the incision until your surgeon allows. Leave malissa, sutures or glue in place. Neurological dysfunction that comes on suddenly can also be a sign of a stroke. Below some common symptoms of a stroke are listed: B - balance difficulty such as sudden onset walking or leaning to one side - NEW E - eye problem such as sudden double vision or trouble seeing on one side - NEW F - Facial weakness or numbness on one side - NEW A - Arm or leg weakness or numbness on one side - NEW S - Slurred speech or difficulty with word finding - NEW T - Time is BRAIN! Call 911 as soon as you recognize these symptoms Diet: Consume a regular diet rich in vegetables and lean protein such as chicken or fish. You should consume in a ratio of approximately 20% fats|40% carbohydrates|40%protein. Vegetables, sweet potatoes, brown rice or quinoa are examples of good carbohydrates. Chips, white bread, cookies and sweets/sugar are examples of bad carbohydrates. Limit your bad carbs, go wild with good carbs. "Life's Simple 7" Guidelines as per [place] [employer] These will help you reclaim your life after surgery and helper maintenance cleaning in your recovery, keeping in mind your restrictions. (1) Get Active. Physical activity can help people lose weight, control high blood pressure and cholesterol, feel emotionally better, and sleep better. (2) Control Cholesterol. Avoid a diet high in saturated fat, trans fat, & cholesterol. Limit whole milk & cream, ice cream, butter, egg yolks, processed meats (like sausage and hot dogs), and fatty meats. Choose healthy foods that are low in saturated fat, trans fat and cholesterol which include: Fruits and vegetables, fiber rich grain products (like whole grain pasta and brown rice), lean meat such as chicken, fish, nuts, seeds, and legumes. (3) Eat Better. Eat small portions. Shop at the grocery with a list and do not stray from it. Tips for a healthy diet include: Limit sodium intake to less than 1500mg daily, avoid prepackaged, processed, and fast foods, choose a diet rich in fruits, vegetables, and whole grain, high fiber foods, and limit saturated & cholesterol in your diet. (4) Manage Blood Pressure. If you have high blood pressure, you should have a cuff at home so that you can check your blood pressure regularly. Be sure you have a good cuff. An arm one is generally better than a wrist one. Bring the cuff to a doctor's appointment to validate that the measurements that your cuff are taking are accurate. Take your blood pressure twice daily when you are sitting down and relaxing. Record the numbers in a log and bring this log with you to your doctors' appointments. (5) Lose Weight if your BMI is above 25. A healthy BMI is between 19-25. To calculate Your BMI, you may use a Standard BMI Calculator on the NIH BMI website: <www.nhlbi.nih.gov/guidelines/obesity/BMI/bmicalc.htm>. Weigh oneself daily. If you are overweight, set a goal to lose weight. A pound a week loss if needed is a good target. (6) Reduce Blood Sugar. Limit foods and liquids with "added sugars." (Added sugars include sucrose, fructose, glucose, maltose, dextrose, high fructose corn syrup, corn syrup, concentrated fruit juice and honey). (7) Stop Smoking. If you smoke, quitting smoking is one of the best things that you can do for your health. Smoking increases your risk of heart attack, stroke, and peripheral vascular disease, which is a build-up of plaque in your arteries. Please discard all the cigarettes and lighters in your house. Have a plan for what you will do when you have the urge to smoke. Direct and second- hand smoke shortens your life as well as the lives of your family, friends and others around you. For your health and the health of those around you, please consider quitting! Proper Bending Body Mechanics: Maintain a wide stance with one foot slightly in front of the other. Keep your back straight. Bend utilizing the strength in your hips and knees. Do not bend at the waist. Maintain the lifted object at your waist-level close to your body. Avoid lifting weight that causes immediately pain or pain anywhere in the body afterwards. Smoking/Nicotine If there was ever one thing that you could do to increase your overall health, decrease your risk of cardiovascular problems by about 39% the second you make the choice, it is to STOP SMOKING. Your body's most instant gratification is the second you stop smoking. We have all heard the studies, read the articles but it is true, smoking is extremely bad for your overall health, and moreover it is detrimental to your bone health. Nicotine, IN ANY FORM, kills bone cells, prevents your body from healing fractures, and significantly prolongs healing after surgery. In spine surgery specifically, it increases your risk of not healing your bones to create a fusion and increases your risk of having a revision surgery due to this up to 60%. I know it is hard. I know it feels impossible. But there are ways. Take control of your life. We are here to help you through it. And when you are ready, ask us and we can direct you to help if you desire. Use the START Plan to Quit Smoking (please visit the Helpguide.org website listed below for more information): S = Set a quit date. Choose a date within the next 2 weeks, so you have enough time to prepare without losing your motivation to quit. If you mainly smoke at work, quit on the weekend, so you have a few days to adjust to the change. T = Tell family, friends, and co-workers that you plan to quit. Let your friends and family in on your plan to quit smoking and tell them you need their support and encouragement to stop. Look for a quit mari who wants to stop smoking as well. You can help each other get through the rough times. A = Anticipate and plan for the challenges you'll face while quitting. Most people who begin smoking again do so within the first 3 months. You can help yourself make it through by preparing ahead for common challenges, such as nicotine withdrawal and cigarette cravings. R = Remove cigarettes and other tobacco products from your home, car, and work. Throw away all your cigarettes (no emergency pack!), lighters, ashtrays, and matches. Wash your clothes and freshen up anything that smells like smoke. Shampoo your car, clean your drapes and carpet, and steam your furniture. T = Talk to your doctor about getting help to quit. Your doctor can prescribe medication to help with withdrawal and suggest other alternatives. If you can't see a doctor, you can get many products over the counter at your local pharmacy or grocery store, including the nicotine patch, nicotine lozenges, and nicotine gum. Resources for Quitting Smoking: <https://www.[place].gov/documents/m dch/Quit_Tobacco_Resources_for_patients_313480_7.pdf> Supplementation: Take recommended dosages of Vitamin D and Calcium to help fortify your bones and help them to heal. See your health maintenance packet for dosages and recommended levels. DVT/VTE prophylaxis: You will be given compression stockings from the hospital. Wear these daily for the first two weeks after surgery. You may take them off at night. You may be prescribed a medication to help thin your blood. Take this as directed. If you are not prescribed this medication, early and frequent ambulation has been shown to be the best prophylaxis to deep vein thrombosis and sequelae related to this event. Discharge Disposition: HOME WITH HOME HEALTH SERVICES
[2021-07-04 10:58] VITALS: BP 116/64; PULSE 82; RESP 18; TEMP 98.3
--- NOTE | 2021-07-08 09:35 | P.OP ---
Date of Procedure: 07/01/21 Preoperative Diagnosis: 1. L3-S1 spondylosis 2.L3-S1 spondylolisthesis GI 3. LE weakness 4. b/l LE radiculopathy 5. 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 Neurogenic claudication Postoperative Diagnosis: 1. L3-S1 spondylosis 2.L3-S1 spondylolisthesis GI 3. LE weakness 4. b/l LE radiculopathy 5. 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 Neurogenic claudication Procedure(s) Performed: 1. L4 5 and L5-S1 combined posterior lateral and interbody fusion (48129, 15688) 2. Insertion of biomechanical device L4 5 and L5-S1 ( [id number]) 3. Segmental instrumentation L4 to S1 (51644) 4. Posterior extradural laminectomy and laminotomy for exploration and decompression of neural elements (21906) 5. Use of intraoperative neuro monitoring 6. Interpretation of intraoperative fluoroscopy less than 1 hour (89220) Implants: -Byron Roundup screw system -Globus Sable Cages x 2 -Autograft -Allograft -DBM -Bio4 Anesthesia: GETA Surgeon: Eder Funez Ash Worker #1: Karen Vásquez (Was present from opening to instrumentation ) Ash Worker #2: Drew Elliott (Was present from the end of isntrumentation to blessing placement and closure and dressing.) Estimated Blood Loss (ml): 150 IV fluids (ml): 2,200 Urine output (ml): 500 Pathology: none sent Condition: stable Disposition: PACU Indications for Procedure: Jamila Corrales is presenting for evaluation of lumbar pain. It was my pleasure to have seen and examined Jamila Corrales. In our visit today we have had a chance to go over subjective complaints, physical examination findings and treatments including the natural course history without intervention and various interventional options. The patients imaging demonstrates Xrays: L3-S1 spondylosis with L3-4 spondylolisthesis Grade I with minor translation on f/e films. There is disc dessication as well as facet arthropathy through this area. No fracture or lesions noted. Flattened LL noted with PI:LL mismatch.AP pelvis shows post surgical changes L CHUCKIE in place, no complicating processes, no new fractures. Olt GT fracture Lt.MRI: Spondylosis is noted from L3-S1 with transitional segment. There is L3-4 and L4-5 spondylolisthesis grade I noted and L3-5. There are no fractures or lesions noted. There is severe stenosis L4-5 with moderate central stenosis L3- 4 and severe L4-5. There is facet arthropathy with hypertrophy and overgrowth contributing to the stenosis, there is ligamental hypertrophy contributing as well. There are boggy facets noted as well.On physical exam, Jamila Corrales demonstrates severely restricted lumbar ROM with bilateral lower extremity radiculopathy and weakness. Specifically regarding plantarflexion she has severe weakness which is effecting gait. She does have a right lower extremity L5-S1 dermatomal deficit as well. I have explained to the patient that as their condition progresses it will cause further neurological deficits and eventual paralysis. Based on the patients imaging, physical exam, and the rapid progression and disabling nature of their symptoms, at this time I recommend surgery in the form or a: L4-S1 decompression and fusion. I discussed the risk and benefits of this procedure at length with Jamila Antoni. The patient agreed to considered pursuing the procedure abovementioned. Prior to surgery, she should follow up with her PCP (Cardio, ID, IM etc) for clearance. Questions were invited and answered, and the patient wishes to proceed as outlined below. Currently, I am recommendin.L4-S1 decompression and fusion 2.Follow up with PCP for surgical clearance 3.Review of surgical risks and benefits as well as an educational packet on the proposed surgical procedure. Description of Procedure: The patient was seen and examined in the preoperative area. All preoperative protocols were followed. Informed consent was obtained risks and benefits of the procedure were discussed at length. Risks including bleeding infection damage to the surrounding tissue and risk of reoperation were discussed with the patient. Risk of anesthesia up to and including was a discussed with the patient. These are outlined in the risk review. They were willing to accept these risks and all of the risks of surgery. The patient was given a weight- based dose of antibiotics in the form of 2 g Ancef. The patient was seen and evaluated by the anesthesia team who deemed them fit for surgery. The site was marked, the patient was willing to proceed with the procedure. The patient was transferred to the operative suite by the Department of anesthesia. They were then drifted off to sleep by the department anesthesia and GETA was performed. The patient tolerated this well. Light catheter was placed by nursing staff, atraumatically. Once confirmation of lines and ventilation the patient was transferred to a prone Waylon table very carefully. All bony prominences including wrists, elbows, axilla, chest, hips, and thighs, and feet were padded very well. Special attention was paid to the genitalia and these were padded accordingly. SCDs were placed on bilateral lower extremities and were connected. Arms were well padded and placed on arm boards up and out in the 90/90 position. Once in position, again we confirmed good ventilation capabilities and that lines were running appropriately. The patient's lumbar spine was then exposed. 1010s were placed outlining the incision site. Standard alcohol was used to clean the incision site and allowed to dry. C-arm was used to biomark the patient and confirm level for incision which was marked with a skin marker. Operative briefing was performed with all teams and everyone in agreement to proceed. The patient was then prepped and draped in a normal sterile fashion. Timeout was then performed and all parties were in agreement with the procedure to be performed. AP and lateral fluoroscopic imaging was used to localize and marked the skin on the right-hand side for placement of screws. We then used a Jamshidi as well as AP lateral fluoroscopic imaging to target the pedicles at L4-L5 and S1 on the right-hand side Jamshidi was inserted and placed once in good position a wire was placed on the Jamshidi and it was removed. This was performed at L4 5 and S1 on the right-hand side to begin. We then used fluoroscopic imaging to target the disc space on the left-hand side of L4-L5. Tubular retractor system was then placed on the left-hand side L4-L5 and optimal position for access to Kambin's triangle and the disc space of L4-L5 on the left. Skin incision was made a wire was placed once in good position dilators were placed and sequentially dilated to the desired tube size 26 mm. A 70 mm tube was in place and secured to the table. It was confirmed to be in good position on AP and lateral fluoroscopic imaging. A polar electrocautery was then used to remove the joint capsule and muscle in this area. High-speed bur was then used to bur and perform a facetectomy first removing the IP of L4 followed by the SAP of L5. These were removed revealing A strangle the exiting nerve root and the dura. Performed then extradural laminectomy using Kerrison rongeurs as well as the high-speed bur to perform an [id number] laminectomy bilaterally at L4-L5 due to her high degree of stenosis. There is a large amount of ligamental hypertrophy in this area which was removed entirely. Once good decompression been obtained we turned our attention back to the disc space L4-L5 we protected the nerve root and the dura and the disc space was accessed. Sequential shaving was performed until desired height and reduction abdomen performed. We then sized and selected disabled cage and this was impacted into position under fluor oscopic guidance. Prior to cage impaction all allograft and autograft placed anterior to the cage.. Once the cage was impacted into place was expanded once expanded and in good position we confirmed this with AP and lateral fluoroscopy. The cage was then backfilled with allograft and DBM. We then turned our attention to the L5-S1 interspace. We targeted this interspace again using AP and lateral fluoroscopic imaging sequential dilators were then placed in tubular retractor system secured into position. Once in position the joint capsule and excess muscle was removed from this area using electrocautery. We then use high-speed bur to remove the IP of L5 and SAP of S1. This revealed Kambin's triangle and the exiting nerve root as well as the dura. Extradural laminectomy was performed on this side as well to decompression with high-speed bur and the Kerrison rongeurs as well as an [id number] decompression. Once decompression was obtained with internal attention back to the disc space to protect the dura and exiting nerve root and access the disc space with lakesha. Sequential lakesha were inserted until the desired height and lordosis of been reviewed obtained. This segment although on imaging appeared somewhat rudimentary may be nonmobile was actually fairly mobile upon insertion of lakesha and was likely unstable. We then sized and selected disabled cage for this area was then impacted into place or protecting elements. Is in good position the cage was expanded and secured in place. We then back filled the cage with autograft and DBM. Prior to cage placement autograft and DBM were placed anterior to cage impacted into position. Once cages were inserted we confirmed good position in AP and lateral fluoroscopy then targeted pedicles on the left-hand side of L4-L5 and S1 with Jamshidi's and wires were placed in the void. We confirmed good placement of wires were then placed screws over the wires and the lateral fluoroscopic imaging guidance. Once screws were in position the wires were pulled. All screws were then in good position we confirmed him to be in good position on AP and lateral fluoroscopy. We then tested screws and ALL screws tested above 20 mA. We then proceeded with placement of the blessing the blessing was then placed percutaneously and subfascially through all screw heads. We then final tightened the S1 screws bilaterally and the L5 screws bilaterally and reduced sequentially the L4 screws to reduce the listhesis. These were then all final tightened and torqued into position. We confirmed good placement under AP and lateral fluoroscopy. The tabs were then removed and confirmed to be out. Final fluoroscopic imaging confirmed good placement of screws. We then copiously irrigated the wounds with normal sterile saline. We are then able to decorticate the transverse processes bilaterally through the 2. Posterior lateral graft was then placed. We then proceeded with layer closure first and the fascia 1 Vicryl followed by 0 Vicryl in the deep subcu tissue 2-0 Vicryl superficial subcu tissue and malissa in the skin. Wound edges approximated very well. The wounds were then cleaned and dressed sterilely with operative foam dressings. The patient was transferred back to their hospital bed atraumatically. Patient was then awakened and extubated by the department of anesthesia having tolerated the procedure very well with no complications. They were transferred to the postoperative care unit in stable condition.
== END 2021-07-04 13:25 | disposition home or self-care (01) | DRG 455 ==
LOC: 2ORMAIN 09:58 → 5NMEDONC 19:04
PROVIDERS: ADMIT Orthopaedic Surgery; ATTEND Orthopaedic Surgery
PROC: 0SG00K1 Fusion of Lumbar Vertebral Joint with Nonautologous Tissue Substitute, Posterior Approach, Posterior Column, Open Approach (ICD-10-PCS; principal; 2021-07-01 11:45)
PROC: 01NB0ZZ Release Lumbar Nerve, Open Approach (ICD-10-PCS; principal; 2021-07-01 11:45)
PROC: 0SG30K1 Fusion of Lumbosacral Joint with Nonautologous Tissue Substitute, Posterior Approach, Posterior Column, Open Approach (ICD-10-PCS; principal; 2021-07-01 11:45)
PROC: 0SG00AJ Fusion of Lumbar Vertebral Joint with Interbody Fusion Device, Posterior Approach, Anterior Column, Open Approach (ICD-10-PCS; principal; 2021-07-01 11:45)
PROC: 01NR0ZZ Release Sacral Nerve, Open Approach (ICD-10-PCS; principal; 2021-07-01 11:45)
PROC: 0SG30AJ Fusion of Lumbosacral Joint with Interbody Fusion Device, Posterior Approach, Anterior Column, Open Approach (ICD-10-PCS; principal; 2021-07-01 11:45)
PROC: 4A11X4G Monitoring of Peripheral Nervous Electrical Activity, Intraoperative, External Approach (ICD-10-PCS; principal; 2021-07-01 11:45)
DX: M47.26 Other spondylosis with radiculopathy, lumbar region (principal); E03.9 Hypothyroidism, unspecified; M47.27 Other spondylosis with radiculopathy, lumbosacral region; M43.16 Spondylolisthesis, lumbar region; M43.17 Spondylolisthesis, lumbosacral region; M48.062 Spinal stenosis, lumbar region with neurogenic claudication; M21.42 Flat foot [pes planus] (acquired), left foot; M21.41 Flat foot [pes planus] (acquired), right foot; I10 Essential (primary) hypertension; F41.9 Anxiety disorder, unspecified; M51.36 Other intervertebral disc degeneration, lumbar region; M19.90 Unspecified osteoarthritis, unspecified site; F32.A Depression, unspecified; G43.909 Migraine, unspecified, not intractable, without status migrainosus; Z79.890 Hormone replacement therapy; Z79.899 Other long term (current) drug therapy; Z87.891 Personal history of nicotine dependence; Z87.19 Personal history of other diseases of the digestive system; Z98.1 Arthrodesis status; Z98.84 Bariatric surgery status; Z96.642 Presence of left artificial hip joint; Z90.710 Acquired absence of both cervix and uterus; Z87.42 Personal history of other diseases of the female genital tract; Z98.891 History of uterine scar from previous surgery; Z87.39 Personal history of other diseases of the musculoskeletal system and connective tissue; Z87.2 Personal history of diseases of the skin and subcutaneous tissue; Z90.89 Acquired absence of other organs; Z98.890 Other specified postprocedural states; Z80.3 Family history of malignant neoplasm of breast
CPT/HCPCS: 72100; 72131; 80048; 85025; 86850; 86900; 86901